=== PATIENT | male | born 1955 | race American Indian/Alaskan Native ===

== ENCOUNTER 2017-04-25 06:05 | Inpatient (IN) | payer MEDICARE ==
[2017-04-10 11:18] VITALS: BMI 52.9
[2017-04-25] MEDS ORDERED: Dexamethasone 4 mg/1 ml IVPB ONE (06:45)
[2017-04-25] MEDS ORDERED: Lactated Ringer's 1,000 ML IV SCH (06:45)
[2017-04-25] MEDS ORDERED: Lactated Ringer's 1,000 ML IV ONE ×4 (06:45→09:30)
[2017-04-25] MEDS ORDERED: Bupivacaine HCl 0.25% PF (10 ml) Inj ONE ×2 (07:28)
[2017-04-25] MEDS ORDERED: ceFAZolin IV 2 gm in Dextrose 1 GM/50 ML BAG IVPB ONE (07:28)
[2017-04-25] MEDS ORDERED: ceFAZolin IV 1 gm in Dextrose 1 GM/50 ML BAG IVPB ONE (07:59)
[2017-04-25] MEDS ORDERED: Propofol 10 mg/ml Inj (20 ML) ONE ×2 (07:59→09:23)
[2017-04-25] MEDS ORDERED: Remifentanil 1 mg/3 ml Vial IV ONE (08:21)
[2017-04-25] MEDS ORDERED: Succinylcholine Chloride 20 mg/ml Syr (5 ml) IV ONE (09:23)
[2017-04-25] MEDS ORDERED: Rocuronium 10 mg/ml (10 ml) ONE (09:23)
[2017-04-25] MEDS ORDERED: Neostigmine Methylsulfate 3mg/3ml Syringe IV ONE (09:29)
[2017-04-25] MEDS ORDERED: HYDROmorphone 0.5 mg/0.5 ml ISec IVP PRN (09:57)
--- NOTE | 2017-04-25 10:05 | PCM.SURG1 ---
Surgeon's Initial Post Op Note - Surgeon's Notes Surgeon: Conrado Mattress Filling Machine Tender: Radha Type of Anesthesia: General Endo Pre-Operative Diagnosis: Morbid Obesity Operative Findings: Negative Leak test, no hiatal hernia Post-Operative Diagnosis: Same Operation Performed: Lap Sleeve, TAP Block, EGD Specimen/Specimens Removed: Partial gastrectomy Estimated Blood Loss: EBL {In ML}: 10 Blood Products Given: N/A Drains Used: No Drains Post-Op Condition: Good Date of Surgery/Procedure: 04/25/17 Time of Surgery/Procedure: 10:06
[2017-04-25] MEDS: HYDROmorphone 0.5 mg/0.5 ml ISec IVP PRN ×3 (10:16→11:45)
[2017-04-25] MEDS: Lactated Ringer's 1,000 ML IV SCH ×4 (14:45→23:20)
[2017-04-26] MEDS: Lactated Ringer's 1,000 ML IV SCH ×3 (05:30→12:48)
[2017-04-26 06:32] LABS: BASO % 0.4 % (0.0-2.0); HEMATOCRIT 35.7 % (35.0-51.0); LYMPH # 1.2 K/uL (1.0-4.3); LYMPH % 14.8 % (20.0-40.0); MEAN CELL VOLUME 88.3 fL (80.0-94.0); MEAN CORPUSCULAR HEMOGLOBIN 29.4 pg (27.0-31.0); MEAN CORPUSCULAR HGB CONC 33.3 g/dL (33.0-37.0); MEAN PLATELET VOLUME 8.9 fL (7.2-11.7); MONO # 0.4 K/uL (0.0-0.8); MONO % 5.5 % (0.0-10.0); NRBC % 0.1 % (0.0-2.0); RED CELL DISTRIBUTION WIDTH 15.4 % (11.5-14.5); WHITE BLOOD COUNT 7.9 K/uL (4.8-10.8)
[2017-04-26 06:48] LABS: BLOOD UREA NITROGEN 14 mg/dL (9-20); CARBON DIOXIDE 26 mmol/L (22-30); CHLORIDE 100 mmol/L (98-107); GFR AFRICAN-AMERICAN > 60; GLUCOSE,RANDOM 87 mg/dL (75-110); POTASSIUM 4.2 mmol/L (3.6-5.2); SODIUM 136 mmol/L (132-148)
[2017-04-26 06:49] LABS: CALCIUM 8.2 mg/dl (8.6-10.4)
[2017-04-26] MEDS ORDERED: Iohexol 240 200 ML IJ ONE (07:25)
[2017-04-26] MEDS ORDERED: Barium Sulfate for Susp 96% w/w 176g Bottle PR ONE ×2 (07:25)
[2017-04-26 07:59] VITALS: O2SAT 95
--- NOTE | 2017-04-26 08:17 | OP ---
PROCEDURE DATE: 04/25/2017 PREOPERATIVE DIAGNOSIS: Morbid obesity. POSTOPERATIVE DIAGNOSIS: Morbid obesity. PROCEDURES: 1. Laparoscopic sleeve gastrectomy. 2. TAP block. 3. Intraoperative EGD. SURGEON: Eriberto Camp DO INTELLIGENCE SPECIALIST: Lemuel Garcia MD TYPE OF ANESTHESIA: General. FINDINGS: Negative intraoperative assessment with no evidence of hiatal hernia. COMPLICATIONS: None. DISPOSITION: Stable to PACU. INDICATIONS FOR PROCEDURE: This is a 61-year-old male with BMI of 38.9 with comorbid conditions of obstructive sleep apnea, hypertension, who failed conservative methods of weight loss. The patient met NIH criteria of weight loss surgery and after all risks, benefits, and alternatives were explained, the patient agreed to proceed with surgery dictated below. DESCRIPTION OF PROCEDURE: The patient was brought to the operating room and placed in supine position on the operating room table. General endotracheal anesthesia was induced by the anesthesia team. A Rachel catheter was inserted to decompress the bladder. Precautions were taken to pad the patient well using gel padding in the back, feet, and arms to prevent postoperative pain. The patient was prepped and draped in the usual sterile fashion. The press assistant and feeder placed a Veress needle in the left upper quadrant below the costal margin to establish pneumoperitoneum to 15 mmHg. A 12-mm Optiview port along with 0-degree laparoscope was inserted in the midline, superior to the umbilicus with no evidence of injury upon entering. Next, the scope was changed to 45 degree and the Veress needle was removed under vision. Under laparoscopic guidance, a transversus abdominis plane block was performed by injecting 30 cc of 0.25% Marcaine into multiple sites along the left flank. The solution was injected into the plane between the internal oblique and the transversus abdominis muscles to aid in postoperative analgesia. This procedure was repeated on the right flank for maximum efficacy. A 15-mm trocar was placed in the right midclavicular line above the umbilicus. Additionally, two 5-mm trocars were placed in the right and left flank below the costal margin. All trocars were placed under direct vision. A liver retractor (Austyn) was inserted through a separate stab incision 1 cm below the xiphoid process and was attached to a retracting device secured to the left side of the table. The entire procedure was performed laparoscopically. The primary surgeon operated from the right side of the patient and the press assistant and feeder operated from the left side of the patient. The lesser sac was entered by first dividing the gastrocolic ligament along the midpoint of the greater curvature of the stomach with a harmonic scalpel. The dissection was performed close to the stomach to avoid the gastroepiploic artery. Dissection proceeded proximally toward the angle of His. The press assistant and feeder dissected out and ligated the short gastric arteries with the harmonic scalpel. Care was taken to avoid injury to the spleen. We then returned to the point, where the dissection began more distally on the greater curvature. The press assistant and feeder used the Harmonic scalpel and continued distally along the greater curvature to approximately 4 to 6 cm from the pylorus. At this point, a 40-Syrian bougie was inserted by the anesthesia team and was aligned medially and passed under vision to the region of the pylorus. The press assistant and feeder grasped the greater curvature of the stomach with a loop grasper and retracted laterally. The sleeve gastrectomy was performed using sequential firings of a 60-mm Endo STU stapler ([employer]). For the initial two firings, a green load was used where the stomach tissue was thicker. The remaining firings were done using gold and blue loads. Care was taken to avoid narrowing the distal aspect of the sleeve. The anterior and posterior vagus nerves were identified and preserved throughout their course. Sequential firings of the stapler continued up to the angle of His. Care was taken to ensure equal tension along the entire staple line to prevent kinking of the sleeve. The entire staple line was reinforced with SeamGuard buttressing material to help reduce the chance of bleeding or a leak. An upper endoscopy was performed (to be dictated separately) in order to evaluate the gastric mucosa as well as perform a leak test. The distal stomach was occluded and the upper abdomen was filled with saline solution in order to submerge the entire staple line. Air was insufflated and no bubbles were visualized. The saline was suctioned off and the scope removed. The resected stomach was placed in a large EndoCatch bag for later removal. The area was carefully inspected and hemostasis ensured. The fascia of the 15-mm port site was closed using 0 Vicryl interrupted suture on the Endoclose device. The liver retractor and all ports were removed under vision and pneumoperitoneum evacuated. The specimen was removed through the 15-mm port site and was sent off the field. The skin on all port sites was closed with 4-0 Monocryl subcuticular sutures followed by Dermabond for dressing. All sponge and instruments counts were correct at the end of the procedure. The patient tolerated the procedure well, was extubated in the operating room and was transferred to the recovery room in stable condition. Eriberto Camp DO
[2017-04-26] MEDS ORDERED: Enoxaparin 40 mg Syringe SC SCH (10:07)
--- NOTE | 2017-04-26 10:36 | RAD ---
HISTORY: s/p sleeve gastrectomy COMPARISON: None. TECHNIQUE: Single-contrast examination was performed with Omnipaque 240 followed by thin barium. FINDINGS: The patient ingested water-soluble contrast Omnipaque followed by thin barium without any difficulty. STOMACH: Packaging Design Engineer view demonstrates alem along the greater curvature of the stomach. Status post sleeve gastrectomy, the slender gastric tube is identified. Contrast passes smoothly from the esophagus into the stomach and from the stomach into the duodenum. There is mild irregularity at the GE junction and along the lateral margin of the fundus thought to be the spectrum of post surgical changes. No definite evidence of extraluminal leakage of contrast or obstruction. OTHER FINDINGS: The total fluoroscopic time was 1.9 minutes. IMPRESSION: Status post sleeve gastrectomy, mild irregularity at the GE junction along the lateral margin of the fundus is likely within the spectrum of post surgical changes. No definite evidence of extraluminal leakage of contrast or obstruction.
--- NOTE | 2017-04-26 15:57 | CP.PCM.DIS ---
Provider - Provider Date of Admission: 04/25/17 06:05 Attending physician: Eriberto Camp Consults: none Time Spent in preparation of Discharge (in minutes): 30 Hospital Course - Lab Results Lab Results: Most Recent Lab Values WBC 7.9 K/uL (4.8-10.8) 04/26/17 06:21 RBC 4.04 Mil/uL (4.40-5.90) L 04/26/17 06:21 Hgb 11.9 g/dL (12.0-18.0) L 04/26/17 06:21 Hct 35.7 % (35.0-51.0) 04/26/17 06:21 MCV 88.3 fL (80.0-94.0) 04/26/17 06:21 MCH 29.4 pg (27.0-31.0) 04/26/17 06:21 MCHC 33.3 g/dL (33.0-37.0) 04/26/17 06:21 RDW 15.4 % (11.5-14.5) H 04/26/17 06:21 Plt Count 268 K/uL (130-400) 04/26/17 06:21 MPV 8.9 fL (7.2-11.7) 04/26/17 06:21 Neut % (Auto) 79.3 % (50.0-75.0) H 04/26/17 06:21 Lymph % (Auto) 14.8 % (20.0-40.0) L 04/26/17 06:21 [place] % (Auto) 5.5 % (0.0-10.0) 04/26/17 06:21 Eos % (Auto) 0.0 % (0.0-4.0) 04/26/17 06:21 Baso % (Auto) 0.4 % (0.0-2.0) 04/26/17 06:21 Neut # 6.3 K/uL (1.8-7.0) 04/26/17 06:21 Lymph # 1.2 K/uL (1.0-4.3) 04/26/17 06:21 [place] # 0.4 K/uL (0.0-0.8) 04/26/17 06:21 Eos # 0.0 K/uL (0.0-0.7) 04/26/17 06:21 Baso # 0.0 K/uL (0.0-0.2) 04/26/17 06:21 Sodium 136 mmol/L (132-148) 04/26/17 06:21 Potassium 4.2 mmol/L (3.6-5.2) 04/26/17 06:21 Chloride 100 mmol/L (98-107) 04/26/17 06:21 Carbon Dioxide 26 mmol/L (22-30) 04/26/17 06:21 Anion Gap 15 (10-20) 04/26/17 06:21 BUN 14 mg/dL (9-20) 04/26/17 06:21 Creatinine 1.1 MG/DL (0.8-1.5) 04/26/17 06:21 Est GFR ( Amer) > 60 04/26/17 06:21 Est GFR (Non-Af Amer) > 60 04/26/17 06:21 Random Glucose 87 mg/dL (75-110) 04/26/17 06:21 Calcium 8.2 mg/dl (8.6-10.4) L 04/26/17 06:21 Blood Type O POSITIVE 04/25/17 07:02 Antibody Screen Negative 04/25/17 07:02 - Hospital Course Hospital Course: 61yo M with PMHx of [place] s/p cardiac cath, HTN, hyperlipidemia presented to same day surgery for laparoscopic sleeve gastrectomy on 04/25/17. The procedure had no complications. A TAP block was done at the end of the procedure. EGD was done and did not show a leak. No hiatal hernia was seen. Patient was initially kept NPO. On POD#1, an upper GI was done which did not show extraluminal leakage of contrast or obstruction. He was tolerating bariatric clear liquid diet with pain well controlled with just toradol. He was cleared for discharge home to follow up with Dr. Camp in his office. Discharge Exam - Head Exam Head Exam: ATRAUMATIC, NORMAL INSPECTION - Eye Exam Eye Exam: EOMI, Normal appearance - Respiratory Exam Respiratory Exam: NORMAL BREATHING PATTERN. absent: Respiratory Distress - Cardiovascular Exam Cardiovascular Exam: +S1, +S2 - GI/Abdominal Exam GI & Abdominal Exam: Soft. absent: Distended, Firm, Guarding, Rebound, Rigid, Tenderness Additional comments: Dermabond in place over laparoscopic incision sites - Neurological Exam Neurological exam: Alert, CN II-XII Intact, Oriented x3 - Psychiatric Exam Psychiatric exam: Normal Affect, Normal Mood - Skin Skin Exam: Dry, Normal Color, Warm Discharge Plan - Follow Up Plan Condition: GOOD Disposition: HOME/ ROUTINE Patient education suggested?: Yes Instructions: Laparoscopic Sleeve Gastrectomy (DC) Additional Instructions: You may shower tomorrow Leave surgical glue in place. It will come off on its own over time. Do not swim or take a bath for 2 weeks. Follow up with Dr. Camp in his office. Call to make appointment. Referrals: Eriberto Camp DO [Staff Provider] -
[2017-04-26 16:08] VITALS: BP 151/80; RESP 20; TEMP 98.8
[2017-04-26 16:42] VITALS: PULSE 84
== END 2017-04-26 20:26 | disposition home or self-care (01) | DRG 621 ==
LOC: C.9S 06:05 → C.6T 14:26
PROVIDERS: ADMIT Surgery; ATTEND Surgery
PROC: 0DJ08ZZ Inspection of Upper Intestinal Tract, Via Natural or Artificial Opening Endoscopic (ICD-10-PCS; 2017-04-25)
PROC: 0DB64Z3 Excision of Stomach, Percutaneous Endoscopic Approach, Vertical (ICD-10-PCS; principal; 2017-04-25 07:45)
DX: E66.01 Morbid (severe) obesity due to excess calories (principal); I10 Essential (primary) hypertension; E78.5 Hyperlipidemia, unspecified; G47.33 Obstructive sleep apnea (adult) (pediatric); Z68.38 Body mass index [BMI] 38.0-38.9, adult